=== PATIENT | female | born 1950 | race Hispanic/Latino ===

== ENCOUNTER 2021-04-05 18:24 | Inpatient (IN) | payer OTHER ==
[2021-04-05 18:46] LABS: Absolute Lymphocytes (CBC) 0.9 K/uL (0.7-4.9); Basophils % 0.7 % (0-1.3); Hematocrit 33.2 % (36.0-45.0); Lymphocytes % 9.1 % (15.3-44.8); MPV 8.8 fL (7.6-11.3); RBC Red Blood Cell Count 3.52 M/uL (3.86-4.86)
[2021-04-05 18:50] LABS: Protime INR 1.45
[2021-04-05] MEDS ORDERED: MORPHINE 4 MG/ML SYR ONE ×2 (18:58→20:48)
[2021-04-05] MEDS ORDERED: ONDANSETRON 4 MG/2 ML VIAL ONE (18:59)
[2021-04-05 19:03] LABS: ALT/SGPT 38 U/L (12-78); AST/SGOT 31 U/L (15-37); Albumin 3.7 g/dL (3.4-5.0); Alkaline Phosphatase 169 U/L (45-117); BUN Blood Urea Nitrogen 22 mg/dL (7-18); Bicarbonate 27 mmol/L (21-32); Bilirubin Direct 0.5 mg/dL (0-0.2); Bilirubin Total 1.2 mg/dL (0.2-1.0); Glucose Level 116 mg/dL (74-106); Lipase 28 U/L (73-393); Magnesium 1.6 mg/dL (1.8-2.4); NT PRO-BNP 3810 pg/mL (<125); Potassium 4.1 mmol/L (3.5-5.1); Protein, Total 7.1 g/dL (6.4-8.2); Sodium Level 143 mmol/L (136-145); Troponin (Emerg Dept Use Only) < 0.02 ng/mL (0.0-0.045)
--- NOTE | 2021-04-05 19:12 | RAD REPORT ---
EXAM DESCRIPTION: Chris Single View04/05/2021 6:49 pm CLINICAL HISTORY: Chest pain COMPARISON: None FINDINGS: The lungs appear clear of acute infiltrate. The heart is mildly enlarged. Pacemaker leads are in place. Postsurgical changes involve the chest IMPRESSION: No acute abnormalities displayed
[2021-04-05] MEDS ORDERED: PIPER/TAZO/NS 3.375gm 3.375 GM/100 ML BAG ONE ×2 (19:37→19:41)
--- NOTE | 2021-04-05 19:44 | RAD REPORT ---
EXAM DESCRIPTION: US - Abdomen Exam Limited - 04/05/2021 7:19 pm CLINICAL HISTORY: Abdominal pain. COMPARISON: None. FINDINGS: Several small echogenic structures within the gallbladder. Posterior shadowing was not maude dereck visualized. Gallbladder wall is thickened measuring 6 millimeters. The common bile measures 8 millimeters. Small amount of pericholecystic fluid is present. IMPRESSION: Thickened gallbladder wall may indicate cholecystitis Small echogenic structures within the gallbladder probably stones which did not shadow secondary to a combination of their small size and technical factors. Mild dilatation of common bile duct
--- NOTE | 2021-04-05 20:02 | EDPHYS ---
Physician Documentation [facility] Name: Bel Vallejo Age: 70 yrs Sex: Female : 1950 Arrival Date: 04/05/2021 Time: 18:25 Bed 4 Private MD: ED Physician Gurmeet Carrillo HPI: 04/05 19:39 This 70 yrs old Female presents to ER via Wheelchair with complaints of jr8 Abdominal pain. 19:39 The patient presents with abdominal pain in the epigastric area, in the right upper jr8 quadrant. Onset: The symptoms/episode began/occurred acutely, today. The symptoms radiate to right back. Associated signs and symptoms: Pertinent positives: nausea and vomiting. The symptoms are described as stabbing. Modifying factors: The symptoms are alleviated by nothing, the symptoms are aggravated by nothing. Severity of pain: At its worst the pain was moderate in the emergency department the pain is unchanged. The patient has not experienced similar symptoms in the past. The patient has not recently seen a physician. Family stated that patient started with indigestion and nausea this AM. Stated that about an hour prior to arrival started to have pain to upper right abdomen that is now acutely worse . Historical: - Allergies: 18:48 No Known Allergies; ld1 - PMHx: 18:41 cabg; PPM; tr6 18:48 Pacemaker; Diabetes - IDDM; Hyperlipidemia; ld1 - PSHx: 18:48 Heart Surgery; ld1 - Immunization history:: Adult Immunizations up to date. - Social history:: Smoking status: unknown. ROS: 19:39 Eyes: Negative for injury, pain, redness, and discharge, ENT: Negative for injury, jr8 pain, and discharge, Neck: Negative for injury, pain, and swelling, Cardiovascular: Negative for chest pain, palpitations, and edema, Respiratory: Negative for shortness of breath, cough, wheezing, and pleuritic chest pain, Back: Negative for injury and pain, MS/Extremity: Negative for injury and deformity, Skin: Negative for injury, rash, and discoloration, Neuro: Negative for headache, weakness, numbness, tingling, and seizure. 19:39 Abdomen/GI: Positive for abdominal pain, nausea and vomiting, Negative for diarrhea. Exam: 19:39 ENT: Nares patent. No nasal discharge, no septal abnormalities noted. Tympanic jr8 membranes are normal and external auditory canals are clear. Oropharynx with no redness, swelling, or masses, exudates, or evidence of obstruction, uvula midline. Mucous membranes moist. Neck: Trachea midline, no thyromegaly or masses palpated, and no cervical lymphadenopathy. Supple, full range of motion without nuchal rigidity, or vertebral point tenderness. No Meningismus. 19:39 Cardiovascular: Regular rate and rhythm with a normal S1 and S2. No gallops, murmurs, or rubs. Normal PMI, no JVD. No pulse deficits. Respiratory: Lungs have equal breath sounds bilaterally, clear to auscultation and percussion. No rales, rhonchi or wheezes noted. No increased work of breathing, no retractions or nasal flaring. Back: No spinal tenderness. No costovertebral tenderness. Full range of motion. Skin: Warm, dry with normal turgor. Normal color with no rashes, no lesions, and no evidence of cellulitis. MS/ Extremity: Pulses equal, no cyanosis. Neurovascular intact. Full, normal range of motion. Neuro: Awake and alert, GCS 15, oriented to person, place, time, and situation. Cranial nerves II-XII grossly intact. Motor strength 5/5 in all extremities. Sensory grossly intact. 19:39 Constitutional: The patient appears alert, awake, obviously ill, in obvious pain. 19:39 Abdomen/GI: Inspection: obese Bowel sounds: active, all quadrants, Palpation: soft, in all quadrants, moderate abdominal tenderness, in the epigastric area and right upper quadrant, mass, is not appreciated, rebound tenderness, is not appreciated, voluntary guarding, is not appreciated, involuntary guarding, is not appreciated, no appreciated organomegaly, Indicators: Walker's sign is positive. Vital Signs: 18:48 BP 146 / 99; Pulse 88; Resp 18; Temp 98.9(O); Pulse Ox 99% on R/A; Pain 9/10; ld1 20:00 BP 146 / 89; Pulse 80; Resp 16; Pulse Ox 98% ; rr5 21:06 BP 141 / 79; Pulse 87; Resp 16; Pulse Ox 98% ; ak2 22:23 BP 121 / 75; Pulse 84; Resp 16; Pulse Ox 99% ; rr5 MDM: 18:36 Patient medically screened. jr8 20:00 Data reviewed: vital signs, nurses notes, lab test result(s), EKG, radiologic studies, jr8 plain films, ultrasound. Data interpreted: Pulse oximetry: on room air is 99 %. Interpretation: normal. Counseling: I had a detailed discussion with the patient and/or guardian regarding: the historical points, exam findings, and any diagnostic results supporting the discharge/admit diagnosis, lab results, radiology results, the need for further work-up and treatment in the hospital. Physician consultation: James Martinez MD was called at 20:00, regarding consult, and will see patient in inpatient room. 04/05 18:30 Order name: Basic Metabolic Panel; Complete Time: 19:12 kdr 04/05 18:30 Order name: CBC with Diff; Complete Time: 19:12 kdr 04/05 18:30 Order name: LFT's; Complete Time: 19:12 kdr 04/05 18:30 Order name: Magnesium; Complete Time: 19:12 kdr 04/05 18:30 Order name: NT PRO-BNP; Complete Time: 19:12 kdr 04/05 18:30 Order name: PT-INR; Complete Time: 19:12 kdr 04/05 18:30 Order name: Troponin (emerg Dept Use Only); Complete Time: 19:12 kdr 04/05 18:30 Order name: XRAY Chest (1 view); Complete Time: 19:27 kdr 04/05 18:32 Order name: Lipase bp 04/05 18:47 Order name: Lipase; Complete Time: 19:12 EDMS 04/05 20:30 Order name: CORONAVIRUS EDHI 04/05 21:22 Order name: SARS-COV-2 RT PCR EDHI 04/05 18:30 Order name: EKG; Complete Time: 18:31 kdr 04/05 18:30 Order name: Cardiac monitoring; Complete Time: 18:42 kdr 04/05 18:30 Order name: EKG - Nurse/Tech; Complete Time: 18:42 kdr 04/05 18:30 Order name: IV Saline Lock; Complete Time: 18:42 kdr 04/05 18:30 Order name: Labs collected and sent; Complete Time: 18:42 kdr 04/05 18:30 Order name: O2 Per Protocol; Complete Time: 18:42 kdr 04/05 18:30 Order name: O2 Sat Monitoring; Complete Time: 18:42 kdr 04/05 18:44 Order name: US Abdomen Limited; Complete Time: 19:49 jr8 04/05 21:37 Order name: CONS Physician Consult EDMS Administered Medications: 18:43 Drug: morphine 4 mg Route: IVP; Site: left antecubital; ld1 19:40 Follow up: Response: No adverse reaction; RASS: Alert and Calm (0) rr5 18:44 Drug: Zofran (Ondansetron) 4 mg Route: IVP; Site: left antecubital; ld1 19:40 Follow up: Response: No adverse reaction rr5 19:40 Drug: Zosyn (piperacillin-tazobactam) 3.375 grams Route: IVPB; Infused Over: 60 mins; ak2 Site: left antecubital; 20:40 Follow up: Response: No adverse reaction; IV Status: Completed infusion; IV Intake: rr5 100ml 19:40 Drug: Magnesium Sulfate 2 grams Route: IVPB; Infused Over: 2 hrs; Site: right ak2 antecubital; 21:40 Follow up: Response: No adverse reaction; IV Status: Completed infusion; IV Intake: rr5 100ml 20:32 Drug: morphine 4 mg Route: IVP; Site: left antecubital; ak2 21:30 Follow up: Response: No adverse reaction rr5 Disposition: 04/06 08:05 Co-signature as Attending Physician, Gurmeet Carrillo MD I agree with the assessment and kdr plan of care. Disposition: 04/05/21 20:01 Hospitalization ordered by Martinez Adan for Inpatient Admission. Preliminary diagnosis is Acute cholecystitis. - Bed requested for Telemetry/MedSurg (Inpatient). - Status is Inpatient Admission. rr5 - Condition is Stable. - Problem is new. - Symptoms have improved. Signatures: Dispatcher [employer] EDMS Chasity Hyatt RN RN mw Rittger, Kevin, MD MD [facility] Michael Schuster PA PA jr8 Johan Nelson RN RN rr5 Hawa Ramos RN RN ld1 Suha Robison RN RN tr6 Ned Borges ak2 Corrections: (The following items were deleted from the chart) 04/05 18:47 18:33 Lipase ordered. EDMS EDMS 20:28 20:10 CORONAVIRUS+MR.LAB.BRZ ordered. EDMS EDMS 22:03 20:01 Hospitalization Ordered by Martinez Adan for Inpatient Admission. Preliminary mw diagnosis is Acute cholecystitis. Bed requested for Telemetry/MedSurg (Inpatient). Status is Inpatient Admission. Condition is Stable. Problem is new. Symptoms have improved. jr8 22:26 22:03 04/05/2021 20:01 Hospitalization Ordered by Martinez Adan for Inpatient rr5 Admission. Preliminary diagnosis is Acute cholecystitis. Bed requested for Telemetry/MedSurg (Inpatient). Status is Inpatient Admission. Condition is Stable. Problem is new. Symptoms have improved. mw
--- NOTE | 2021-04-05 20:02 | ER ---
Nurse's Notes [facility] Name: Bel Vallejo Age: 70 yrs Sex: Female : 1950 Arrival Date: 04/05/2021 Time: 18:25 Bed 4 Private MD: Diagnosis: Acute cholecystitis Presentation: 04/05 18:28 Acuity: BENITA 2 ss 18:37 Chief complaint: Patient states: c/o RUQ/ CP beginning at 1805 while pt was resting. pt tr6 visibly in pain and tender to touch. pts daughter reports that pt had CABG in 2005 and PPM to left chest 2013. pt arrived via flight to visit daughter from [place]. Chief complaint:. Coronavirus screen: At this time, unable to obtain information related to travel outside the [place] Ebola Screen: Patient negative for fever greater than or equal to 101.5 degrees Fahrenheit, and additional compatible Ebola Virus Disease symptoms Patient denies exposure to infectious person. Patient denies travel to an Ebola-affected area in the 21 days before illness onset. Initial Sepsis Screen: Does the patient meet any 2 criteria? No. Patient's initial sepsis screen is negative. Does the patient have a suspected source of infection? No. Patient's initial sepsis screen is negative. Risk Assessment: Do you want to hurt yourself or someone else? Patient reports no desire to harm self or others. Onset of symptoms was April 05, 2021. 18:37 Acuity: BENITA 2 tr6 18:37 Method Of Arrival: Wheelchair tr6 Historical: - Allergies: 18:48 No Known Allergies; ld1 - PMHx: 18:41 cabg; PPM; tr6 18:48 Pacemaker; Diabetes - IDDM; Hyperlipidemia; ld1 - PSHx: 18:48 Heart Surgery; ld1 - Immunization history:: Adult Immunizations up to date. - Social history:: Smoking status: unknown. Screenin:48 Abuse screen: Denies threats or abuse. Denies injuries from another. Nutritional ld1 screening: No deficits noted. Tuberculosis screening: No symptoms or risk factors identified. Fall Risk IV access (20 points). Assessment: 18:44 General: Appears in no apparent distress. uncomfortable, Behavior is calm, cooperative, ld1 appropriate for age. Pain: Complains of pain in right upper quadrant and right lower quadrant Pain radiates to back Pain currently is 9 out of 10 on a pain scale. Quality of pain is described as stabbing, throbbing, Pain began 2 hours ago. Is continuous. Neuro: Level of Consciousness is awake, alert, obeys commands, Oriented to person, place, time, situation, Appropriate for age. Cardiovascular: Capillary refill < 3 seconds Patient's skin is warm and dry. Rhythm is atrial pacer Chest pain began 2 hours prior to arrival. Cardiovascular: Reports chest pain, nausea, vomiting. Respiratory: Airway is patent Respiratory effort is even, unlabored, Respiratory pattern is regular, symmetrical. GI: Abdomen is round non-distended, Reports lower abdominal pain, upper abdominal pain, nausea, vomiting. : No signs and/or symptoms were reported regarding the genitourinary system. EENT: No signs and/or symptoms were reported regarding the EENT system. Derm: No signs and/or symptoms reported regarding the dermatologic system. Musculoskeletal: No signs and/or symptoms reported regarding the musculoskeletal system. 19:40 Reassessment: Patient appears in no apparent distress at this time. Patient is alert, rr5 oriented x 3, equal unlabored respirations, skin warm/dry/pink. complaints of pain provider aware with order made and carried out. 21:00 Reassessment: Patient appears in no apparent distress at this time. Patient is alert, rr5 oriented x 3, equal unlabored respirations, skin warm/dry/pink. hospitalist at bedside Patient states symptoms have improved. Vital Signs: 18:48 BP 146 / 99; Pulse 88; Resp 18; Temp 98.9(O); Pulse Ox 99% on R/A; Pain 9/10; ld1 20:00 BP 146 / 89; Pulse 80; Resp 16; Pulse Ox 98% ; rr5 21:06 BP 141 / 79; Pulse 87; Resp 16; Pulse Ox 98% ; ak2 22:23 BP 121 / 75; Pulse 84; Resp 16; Pulse Ox 99% ; rr5 ED Course: 18:25 Patient arrived in ED. mr 18:28 Triage completed. ss 18:30 Gurmeet Carrillo MD is Attending Physician. kdr 18:30 Garrett Aguiar, ALLYN is Primary Nurse. bp 18:36 Michael Schuster PA is PHCP. jr8 18:42 Appears restless. tr6 18:42 Inserted saline lock: 18 gauge in left antecubital area, using aseptic technique. Blood tr6 collected. 18:48 No provider procedures requiring assistance completed. Patient maintains SpO2 ld1 saturation greater than 95% on room air. 18:48 Patient has correct armband on for positive identification. Placed in gown. Bed in low ld1 position. Call light in reach. Side rails up X2. library monitor on. Pulse ox on. NIBP on. Door closed. Noise minimized. Warm blanket given. 18:49 XRAY Chest (1 view) In Process Unspecified. EDMS 19:19 US Abdomen Limited In Process Unspecified. EDMS 19:27 Primary Nurse role handed off by Garrett Aguiar, ALLYN eb 19:30 Arm band placed on right wrist. rr5 20:01 Martinez Adan is Hospitalizing Provider. jr8 20:08 Johan Nelson, ALLYN is Primary Nurse. rr5 20:32 COVID swab sent to lab. rr5 22:14 Patient admitted, IV remains in place. intact, No redness/swelling at site. rr5 Administered Medications: 18:43 Drug: morphine 4 mg Route: IVP; Site: left antecubital; ld1 19:40 Follow up: Response: No adverse reaction; RASS: Alert and Calm (0) rr5 18:44 Drug: Zofran (Ondansetron) 4 mg Route: IVP; Site: left antecubital; ld1 19:40 Follow up: Response: No adverse reaction rr5 19:40 Drug: Zosyn (piperacillin-tazobactam) 3.375 grams Route: IVPB; Infused Over: 60 mins; ak2 Site: left antecubital; 20:40 Follow up: Response: No adverse reaction; IV Status: Completed infusion; IV Intake: rr5 100ml 19:40 Drug: Magnesium Sulfate 2 grams Route: IVPB; Infused Over: 2 hrs; Site: right ak2 antecubital; 21:40 Follow up: Response: No adverse reaction; IV Status: Completed infusion; IV Intake: rr5 100ml 20:32 Drug: morphine 4 mg Route: IVP; Site: left antecubital; ak2 21:30 Follow up: Response: No adverse reaction rr5 Intake: 20:40 IV: 100ml; Total: 100ml. rr5 21:40 IV: 100ml; Total: 200ml. rr5 Outcome: 20:01 Decision to Hospitalize by Provider. jr8 22:22 Admitted to Med/surg accompanied by tech, room 217, with chart, Report called to rr5 raza 22:22 Condition: stable 22:22 Instructed on the need for admit. 22:26 Patient left the ED. rr5 Signatures: Dispatcher [employer] EDMS Gurmeet Carrillo MD MD [facility] Adrián, Claudia mr Chhaya Zhao, RN RN Michael Schuster PA PA jr8 Garrett Aguiar, RN RN Shira Michael Raymond RN RN rr5 Hawa Ramos RN RN ld1 Suha Robison RN RN tr6 Ned Borges Corrections: (The following items were deleted from the chart) 18:37 18:28 Acuity: BENITA 1 ss 18:40 18:37 Onset of symptoms was April 04, 2021 tr6 tr6
[2021-04-05] MEDS ORDERED: Magnesium Sulfate 2gm IVPB 2 G/50 ML BAG IV ONE (20:06)
[2021-04-05] MEDS: NA CHLORIDE 0.9% 1,000 ML IV SCH (23:00)
[2021-04-05] MEDS ORDERED: ACETAMINOPHEN 500 MG TAB PO PRN (23:08)
[2021-04-06] MEDS ORDERED: ONDANSETRON 4 MG/2 ML VIAL IV PRN (01:00)
[2021-04-06] MEDS: PIPER/TAZO/NS 3.375gm 3.375 GM/100 ML BAG IVPB SCH ×3 (03:06→17:00)
[2021-04-06] MEDS ORDERED: PIPER/TAZO/NS 3.375gm 3.375 GM/100 ML BAG ONE (03:06)
--- NOTE | 2021-04-06 03:57 | P.HP ---
Certification for Inpatient With expected LOS: >2 Midnights Patient will require the following post-hospital care: None Practitioner: I am a practitioner with admitting privileges, knowledge of patient current condition, hospital course, and medical plan of care. Services: Services provided to patient in accordance with Admission requirements found in Title 42 Section 412.3 of the Code of Federal Regulations Patient History Date of Service: 04/06/21 Primary Care Provider: Dr. Irma Bell Reason for admission: cholecystitis History of Present Illness: Ms. Vallejo is a 70 y/o F w/ HTN, HLD, T2DM, hx of CABG and pacemaker, on eliquis, who presents today w/ RUQ pain radiating to lower back. She states the pain started a few hours after eating lunch and felt like indigestion. She states the pain was continuous and 10/10. Reports this has never occurred before. C/o nausea, vomiting, chills. Denies any fever, cough, changes in bowel movements. BUN 22, Alk phos 169, BNP 3810. Abdominal u/s shows: Thickened gallbladder wall may indicate cholecystitis. Small echogenic structures within the gallbladder probably stones which did not shadow secondary to a combination of their small size and technical factors. Mild dilatation of common bile duct Will admit and plan for surgery tomorrow. Pt last took eliquis this afternoon. Pain well controlled in ED. Allergies No Known Allergies Allergy (Verified 04/05/21 20:29) - Past Medical/Surgical History Has patient received pneumonia vaccine in the past: Yes Diabetic: Yes -: Hyperlipidemia -: Hypertention -: Diabetes Mellitus Type 2 -: afib -: gout -: OA -: central tremors -: Hysterectomy -: -: CABG -: Pacemaker Psychosocial/ Personal History: lives in [place] with son. In town visiting grand-daughter - Social History Smoking Status: Never smoker Alcohol use: No CD- Drugs: No Caffeine use: No Place of Residence: Home Review of Systems 10-point ROS is otherwise unremarkable General: Chills Gastrointestinal: Nausea, Vomiting, Abdominal Pain, As per HPI Physical Examination - Vital Signs Temperature: 98.6 F Blood Pressure: 126/74 Pulse: 88 Respirations: 18 Pulse Ox (%): 96 - Physical Exam General: Alert, In no apparent distress, Oriented x3, Cooperative HEENT: Atraumatic, Normocephalic, PERRLA, EOMI Neck: Supple Respiratory: Clear to auscultation bilaterally, Normal air movement Cardiovascular: No edema, Regular rate/rhythm, Normal S1 S2 Capillary refill: <2 Seconds Gastrointestinal: Normal bowel sounds, Soft and benign, Non-distended, Tenderness (RUQ TTP), Guarding (RUQ) Musculoskeletal: No clubbing, No swelling Integumentary: No rashes Neurological: Normal speech, Normal tone, Normal affect Lymphatics: No axilla or inguinal lymphadenopathy - Studies Laboratory Data (last 24 hrs) 04/05/21 18:33: Lipase Cancelled 04/05/21 18:33: PT 16.7 H, INR 1.45 04/05/21 18:33: WBC 10.30, Hgb 11.1 L, Hct 33.2 L, Plt Count 164 04/05/21 18:33: Sodium 143, Potassium 4.1, BUN 22 H, Creatinine 1.11, Glucose 116 H, Magnesium 1.6 L, Total Bilirubin 1.2 H, AST 31, ALT 38, Alkaline Phosphatase 169 H, Lipase 28 L Assessment and Plan - Plan cardiac clearance, consult cardiology telemetry NPO continue zosyn, IVF morphine for pain control surgery consulted. will plan for surgery tomorrow morning. consult GI hold all home meds and plan to restart after surgery Discharge Plan: Home Plan to discharge in: 48 Hours - Advance Directives Does patient have a Living Will: No Does patient have a Durable POA for Healthcare: No Time Spent Managing Pts Care (In Minutes): 70
[2021-04-06 04:42] LABS: Urine Appearance CLEAR (Clear); Urine Bilirubin NEGATIVE (Negative); Urine Blood NEGATIVE (Negative); Urine Color YELLOW (Yellow); Urine Glucose NEGATIVE (Negative); Urine Protein NEGATIVE (Negative); Urine Specific Gravity 1.015 (1.005-1.030)
[2021-04-06 04:49] LABS: Urine Microscopic Reflex NO UMIC
[2021-04-06 05:49] LABS: Absolute Lymphocytes (CBC) 1.2 K/uL (0.7-4.9); Basophils % 0.6 % (0-1.3); Hematocrit 28.3 % (36.0-45.0); MPV 9.2 fL (7.6-11.3); RBC Red Blood Cell Count 2.98 M/uL (3.86-4.86)
[2021-04-06 06:20] LABS: Albumin 2.9 g/dL (3.4-5.0); Magnesium 1.9 mg/dL (1.8-2.4); Potassium 4.4 mmol/L (3.5-5.1); Protein, Total 5.9 g/dL (6.4-8.2); Thyroid Stimulating Hormone 0.44 uIU/mL (0.360-3.740)
[2021-04-06] MEDS ORDERED: NA CHLORIDE 0.9% 1,000 ML ONE ×2 (14:11→17:12)
--- NOTE | 2021-04-06 14:35 | P.PN ---
Subjective Date of Service: 04/06/21 Primary Care Provider: Dr. Irma Bell Chief Complaint: cholecystitis Patient denies any complain at this time. She states her abdominal pain has resolved. She is NPO. Physical Examination - Vital Signs Temperature: 97.3 F Blood Pressure: 142/75 Pulse: 84 Respirations: 16 Pulse Ox (%): 96 - Physical Exam General: Alert, In no apparent distress, Oriented x3 HEENT: Mucous membr. moist/pink, Sclerae nonicteric Neck: Supple, JVD not distended Respiratory: Clear to auscultation bilaterally, Normal air movement Cardiovascular: No edema, Regular rate/rhythm, Normal S1 S2 Gastrointestinal: Normal bowel sounds, Soft and benign, Non-distended, No tenderness Musculoskeletal: No swelling, No tenderness Integumentary: No rashes, No erythema Neurological: Normal speech, Normal strength at 5/5 x4 extr, Cranial nerves 3-12 intact - Studies Laboratory Data (last 24 hrs) 04/05/21 18:33: Lipase Cancelled 04/05/21 18:33: PT 16.7 H, INR 1.45 04/05/21 18:33: WBC 10.30, Hgb 11.1 L, Hct 33.2 L, Plt Count 164 04/05/21 18:33: Sodium 143, Potassium 4.1, BUN 22 H, Creatinine 1.11, Glucose 116 H, Magnesium 1.6 L, Total Bilirubin 1.2 H, AST 31, ALT 38, Alkaline Phosphatase 169 H, Lipase 28 L Assessment And Plan - Current Problems (Diagnosis) (1) Acute cholecystitis Current Visit: Yes Status: Acute (2) Cholelithiasis Current Visit: Yes Status: Acute (3) Anemia Current Visit: Yes Status: Acute (4) Chronic atrial fibrillation Current Visit: Yes Status: Acute (5) Chronic anticoagulation Current Visit: Yes Status: Acute - Plan Patient with cholelithiasis and imaging findings suggestive of cholecystitis. She is anticoagulated with Eliquis. Hold Eliquis. General surgery-Dr. Martinez consulted. Patient kept NPO. May need lap cholecystectomy and intra op cholangiogram. GI consult pending cholecystectomy. Resume antihypertensives and Coreg.
--- NOTE | 2021-04-06 15:32 | P.CNS ---
Date of Consult: 04/06/21 PC: This 70-year-old female presents emergency room with severe right upper quadrant abdominal pain for diagnosis and treatment. HPC: This patient, who was out of town visiting her granddaughter squeezing in a concert tomorrow presents to the ER with severe right upper quadrant abdominal pain. She describes the pain is severe, radiating into her back. Earliest stronger is labor pains. She denies having previous episodes of this but has not felt well over the last few weeks. PMH: History is atrial fibrillation, PSHx: Previous C-sections, no abdominal surgery, has a pacemaker SOC: No known allergies, medication list has been reviewed, she is on blood thinners SYS REVIEW: No cough, wheeze, does have very mild exertional dyspnea. States her appetite has been okay med has not really felt well for the last few weeks. Denies any urinary complaints. Says she has had this pain a couple times before but did not think it was significant. O/E awake alert vital signs are stable HEENT: Nonicteric Chest: Chest movement equal bilaterally ABD: Soft with mild right upper quadrant tenderness LOCO: Intact DATA: Ultrasound shows gallstones, possible mildly dilated common bile duct, CT scan shows griffin cholecystic fluid. IMPRESSION: Acute on chronic cholecystitis with cholelithiasis, possible choledocholithiasis PLAN: I will take her to the operating room for laparoscopic possible open cholecystectomy with cholangiogram. The risks of this procedure have been discussed. The possibility of bleeding, infection, injury to bile ducts blood vessels intestines has been described. The possible need for further surgeries and procedures was discussed. She understands and wants us to proceed.
--- NOTE | 2021-04-06 15:35 | CON ---
Date of Consultation: 04/06/2021 Reason For Consultation: Cardiac preop evaluation before gallbladder surgery. History Of Present Illness: This is a 70-year-old female who presented to the hospital with signific ant abdominal pain and history of hypertension, dyslipidemia, coronary artery disease status post car diac bypass surgery in 2006. The patient presented with right upper quadrant pain, nausea, vomiting, fever and chills and is concerned about significant case of acute cholecystitis and before _ to surgery, I was asked to evaluate the patient to risk stratify cardiac status for general anesthe silverio. This patient is very active, lives in a place where she has to climb 17 steps up and down all d ay and she does not have any limiting symptoms. No chest pain. She gets short of breath, but not to limit her activities. The patient follows up with card folder on a regular basis and had a stress test within the past 2-3 years and she passed it as per her report. No active complaints at this poi nt of chest pain or shortness of breath at rest. Past Medical History: As outlined above in the HPI. Medications: Refer to reconciliation sheet for detailed list. Allergies: NO KNOWN DRUG ALLERGIES. Family History: No premature coronary artery disease or cancer. Social History: She does not smoke or drink. Does not use any drugs. Review of Systems: All systems reviewed and they were negative except as mentioned in the HPI. Physical Examination: Vital Signs: Reviewed. Head and Neck: Pupils are equal, reactive to light. Intact eye movements. No JVD. No cervical lym phadenopathy. Neck: Supple. Thyroid is not enlarged. Lungs: Clear to auscultation bilaterally. No rhonchi, rales, or crackles. No accessory muscle use. Heart: Regular rate and rhythm. No extra sounds. Abdomen: Soft. Bowel sounds positive. Extremities: No edema, clubbing, cyanosis. Neurologic: Alert, awake, oriented x3. No acute focal deficits appreciated. Lymph Nodes: No cervical lymphadenopathy. Investigations: Troponin less than 0.02. BUN is 20, creatinine 1.04. White blood cell count is 6.3 , hemoglobin 9.4. Assessment And Recommendation: Cardiac preop assessment: This patient has multiple risk factors inc luding established coronary artery disease. However, she is physically active, can climb more than 1 7 steps multiple times during the day without any chest pain. This good exercise capacity is assurin g. However, given her age and risk factors that will put her at moderate cardiac risk for noncardiac surgery and I discussed her case with the primary surgeon and it seems there is a concern of signifi cant acute cholecystitis and possibly gangrene. Given the urgency of the surgery, at this point, I r ecommend no further cardiac workup and to proceed with the surgery and we will monitor the patient cl osely from a cardiac standpoint. Again; she is at moderate cardiac risk for noncardiac surgery and no further cardiac workup is recomm ended due to the urgency nature of the surgery. /MODL Voice ID: [id number] Report ID: [id number]
[2021-04-06] MEDS ORDERED: propofoL 200 MG/20 ML VIAL IV ONE (15:49)
[2021-04-06] MEDS ORDERED: FENTANYL CITR 100 MCG/2 ML ONE (15:50)
[2021-04-06] MEDS ORDERED: MIDAZOLAM HCL 2 MG/2 ML INJ ONE (15:50)
[2021-04-06] MEDS ORDERED: GLYCOPYRROLATE 0.2 MG/ML SYR ONE ×2 (15:50)
[2021-04-06] MEDS ORDERED: LIDOCAINE 1% MPF 5 ML VIAL ONE (15:50)
[2021-04-06] MEDS ORDERED: NEOSTIGMINE 1 MG/ML -5 ML ONE (15:51)
[2021-04-06] MEDS ORDERED: KETOROLAC 30 MG/ML INJ ONE (15:51)
[2021-04-06] MEDS ORDERED: ROCURONIUM 50 MG/5 ML VIAL IV ONE (15:52)
[2021-04-06] MEDS ORDERED: INSULIN -REGULAR HUMAN 50 UNIT/0.5 ML ML ONE (16:02)
[2021-04-06] MEDS: NA CHLORIDE 0.9% 1,000 ML IV SCH ×4 (16:52→18:12)
--- NOTE | 2021-04-06 17:50 | P.OP ---
Preoperative diagnosis: Acute cholecystitis with cholelithiasis possible choledocholithiasis Postoperative diagnosis: Acute cholecystitis with cholelithiasis Primary procedure: Laparoscopic cholecystectomy Secondary procedure: Cholangiogram Other procedure(s): Exploration of common bile duct Anesthesia: General Estimated blood loss: Less than 20 cc Specimen: Gallbladder and contents Operative Technique: The patient brought the operating room placed supine on the table. After the induction of adequate general endotracheal anesthesia, the area of the abdomen was prepped with a DuraPrep solution, she is draped in usual aseptic manner. A subumbilical incision was made. This brought down through the skin and subcutaneous tissue. The Visiport was used to enter the peritoneal cavity and created pneumoperitoneum to approximately 12 mm of mercury. Under direct vision a 5 mm trocar was placed in the upper midline, and 2 other 5 mm trocars on the right lateral side of the abdominal wall. The patient was now placed in reverse Trendelenburg. The patient was then rolled to the left. We could visualize right upper quadrant. We noted a markedly distended and edematous gallbladder. The contents of the gallbladder were aspirated using an aspirating needle. We were now able to place a grasper on the fundus of the gallbladder. Another grasper was placed down by Willa's pouch. There was noted be a considerable amount of edema around the area over the Willa's pouch and cystic duct junction. This area was clear to obtain the critical view. This having being done a clip was now placed between the gallbladder and the cystic duct. An opening was made into the cystic duct through which we obtained a cholangiogram. The cholangiogram showed a filling defect. We were able to pass the catheter down through this but we could is not dislodge this filling defect. The catheter did not pass easily when the balloon was deflated into the duodenum. At this point is to grow basket was taken 2.5 Slovak then passed down through the cystic duct. Unfortunately were not able to make the bend at the junction between the cystic duct and the common bile duct that there were valves in that area. We did not persistent this nor did we continue to try to dilate the cystic duct. At this point point weak tissues me cholangiocatheter in the balloon to explore the common duct. The catheter was now passed all the way down to the distal portion of the cystic duct. Its position was verified by gently inflating the balloon. Gentle traction was was now applied to the catheter to pull it back. We were able to pull it passes what appeared to be obstruction. As we got up to the junction of the cystic duct continuing to apply traction the balloon popped out of the cystic duct. Unfortunately did not see whether there was any contents as a kind of gave away quickly. A completion cholangiogram after that showed no filling defects in the common bile duct. The extrahepatic biliary tree appeared to fill normally. At this point the catheter was removed. Clips were placed on the distal portion of the cystic duct which was now fully transected. The cystic artery was identified clipped and divided in the usual manner. The gallbladder was dissected free from the liver bed, placed into an Endo-Catch, and brought out through the umbilical trocar site. At this point we inspected the right upper quadrant. It appeared to be dry. Attention was turned back towards the emboli kiss in this air was approximated with 3 interrupted sutures of PDS. A good closure having been achieved, we once again looked in the right upper quadrant. It appeared to have some increased oozing from underneath the edge of the liver. Attention was now turned back up towards the liver itself. Once again the patient was placed in reverse Trendelenburg and rolled to the left. The liver bed was inspected. Some small vessels were seen but there was no actual pumping up arteries. The patient is on Eliquis. It was also necessary to place an additional 5 mm trocar in the upper portion of the right side of the abdomen to allowed us to gently manipulate the liver edge without causing any perforating injury to the liver itself. This having mean done the patient was once again taken out of reverse Trendelenburg and flatten on the OR table. The pneumoperitoneum was now collapsed, the trocars removed, and truman applied to the skin. At the end of the procedure she was in a stable condition when sent to the recovery room. Needle sponge instrument count were correct. No drains were placed. Transferred to: Recovery Room Condition: Good
[2021-04-06] MEDS ORDERED: MORPHINE 4 MG/ML SYR IV PRN (17:53)
[2021-04-06] MEDS: HYDROMORPHONE HCL 1 MG/ML INJ ONE ×2 (17:53→17:58)
--- NOTE | 2021-04-06 18:48 | RAD REPORT ---
EXAM DESCRIPTION: RAD - Cholangiogram Oper-Xray Or - 04/06/2021 6:41 pm CLINICAL HISTORY: LAP PAPITO WITH IOC WITH DOCTOR AFRAZ ROOM TWO COMPARISON: Abdomen Exam Limited dated 04/05/2021 FINDINGS: Cystic duct injection was performed by operating surgeon. Common bile duct is mildly promi nent in size. Rounded filling defect in the common bile duct may represent a stone or less likely air bubble. Total fluoro time: 1.9 minutes
[2021-04-06] MEDS: carvediloL 25 MG TAB PO SCH (20:32)
[2021-04-06] MEDS: MORPHINE 2 MG/ML SYR IV PRN (20:57)
[2021-04-07] MEDS: PIPER/TAZO/NS 3.375gm 3.375 GM/100 ML BAG IVPB SCH ×4 (02:11→23:53)
[2021-04-07] MEDS: MORPHINE 2 MG/ML SYR IV PRN (02:49)
[2021-04-07 06:18] LABS: Absolute Lymphocytes (CBC) 0.7 K/uL (0.7-4.9); Basophils % 0.5 % (0-1.3); Hematocrit 23.7 % (36.0-45.0); Lymphocytes % 7.8 % (15.3-44.8); MPV 9.3 fL (7.6-11.3); RBC Red Blood Cell Count 2.49 M/uL (3.86-4.86)
[2021-04-07] MEDS: PANTOPRAZOLE 40MG TABLET PO SCH (06:24)
[2021-04-07 06:28] LABS: Albumin 2.7 g/dL (3.4-5.0); Bilirubin Direct 0.3 mg/dL (0-0.2); Potassium 4.5 mmol/L (3.5-5.1); Protein, Total 5.4 g/dL (6.4-8.2)
[2021-04-07 08:05] LABS: Anisocytosis 1+; Blood Morphology Comment NOTED (NOT SEEN); Platelet Estimate DECR; Polychromasia 1+
[2021-04-07] MEDS: MAGNESIUM OXIDE 400 MG TAB PO SCH (08:05)
[2021-04-07] MEDS: allopurinoL 300 MG TAB PO SCH (08:06)
[2021-04-07] MEDS: lisinopriL 10 MG TAB PO SCH (08:06)
[2021-04-07] MEDS: carvediloL 25 MG TAB PO SCH ×2 (08:06→21:00)
--- NOTE | 2021-04-07 11:46 | P.PN ---
Subjective Date of Service: 04/07/21 Primary Care Provider: Dr. Irma Bell Chief Complaint: cholecystitis Status post lap cholecystectomy. Intra op cholangiogram identified rounded mass in the CBD. Patient has no complaint except fatigue. Physical Examination - Vital Signs Temperature: 97.6 F Blood Pressure: 96/54 Pulse: 94 Respirations: 16 Pulse Ox (%): 97 - Physical Exam General: Alert, In no apparent distress, Oriented x3 HEENT: Mucous membr. moist/pink Neck: JVD not distended Respiratory: Clear to auscultation bilaterally, Normal air movement Cardiovascular: No edema, Regular rate/rhythm, Normal S1 S2 Gastrointestinal: Normal bowel sounds, Soft and benign, Non-distended Musculoskeletal: No swelling Integumentary: No rashes Neurological: Normal strength at 5/5 x4 extr Assessment And Plan - Current Problems (Diagnosis) (1) Acute cholecystitis Current Visit: Yes Status: Acute (2) Cholelithiasis Current Visit: Yes Status: Acute (3) Anemia Current Visit: Yes Status: Acute (4) Chronic atrial fibrillation Current Visit: Yes Status: Acute (5) Chronic anticoagulation Current Visit: Yes Status: Acute - Plan Status post lap cholecystectomy. Intra op cholangiogram reporting rounded mass in the CBD. She is anticoagulated with Eliquis. Continue to hold Eliquis. Will order MRCP for Thursday. General surgery-Dr. Martinez input appreciated. GI consult. Feeding resumed. Hold BP meds due to borderline low blood pressure.
[2021-04-07] MEDS ORDERED: NA CHLORIDE 0.9% 250 ML IV ONE (11:55)
[2021-04-07] MEDS: HYDROCODONE/APAP 7.5/325 MG TAB PO PRN ×2 (12:05→21:51)
[2021-04-07] MEDS: NA CHLORIDE 0.9% 1,000 ML IV SCH (12:36)
[2021-04-07] MEDS ORDERED: NA CHLORIDE 0.9% 500 ML IV ONE (15:40)
--- NOTE | 2021-04-07 16:39 | P.PN ---
Date of Service: 04/07/21 S: Patient feels so much better today she states, very thankful for her care. O: Patient was mildly hypertensive this evening. Otherwise awake, interactive, very comfortable. Has been up ambulating, has been to the restroom. Not tachycardic. A: Surgically stable status post laparoscopic cholecystectomy with exploration of common bile duct. P: From a surgical standpoint point, patient appears to be doing very well. The radiology report another concerning possible common bile duct stone versus air bubble was my concern yesterday in the operating room. I felt that our completion films on the cholangiogram demonstrated that the filling defect had resolved. I will discuss this with the radiologist in the morning, prior to the patient's discharge, and will determine if she requires ongoing treatment. Patient from [place], but will be staying with some friends he in the local area postoperatively. She will also follow up with me in my office.
[2021-04-08 04:57] LABS: Basophils % 0.4 % (0-1.3); Lymphocytes % 12.8 % (15.3-44.8); MPV 8.6 fL (7.6-11.3); RBC Red Blood Cell Count 1.96 M/uL (3.86-4.86)
[2021-04-08 05:02] LABS: Hematocrit 18.8 % (36.0-45.0)
[2021-04-08] MEDS ORDERED: DIPHENHYDRAMINE 50 MG/ML VIAL IV PRN (05:08)
[2021-04-08 05:09] LABS: Magnesium 1.8 mg/dL (1.8-2.4); Potassium 4.3 mmol/L (3.5-5.1)
[2021-04-08] MEDS: PANTOPRAZOLE 40MG TABLET PO SCH (05:56)
[2021-04-08] MEDS: MAGNESIUM OXIDE 400 MG TAB PO SCH (08:42)
[2021-04-08] MEDS: carvediloL 25 MG TAB PO SCH ×2 (08:42→21:00)
[2021-04-08] MEDS: lisinopriL 10 MG TAB PO SCH (08:43)
[2021-04-08] MEDS: PIPER/TAZO/NS 3.375gm 3.375 GM/100 ML BAG IVPB SCH ×2 (08:43→16:15)
[2021-04-08] MEDS: allopurinoL 300 MG TAB PO SCH (08:46)
[2021-04-08] MEDS: NA CHLORIDE 0.9% 1,000 ML IV SCH ×2 (10:00→22:21)
[2021-04-08] MEDS ORDERED: NA CHLORIDE 0.9% 250 ML ONE (10:30)
[2021-04-08] MEDS: HYDROCODONE/APAP 7.5/325 MG TAB PO PRN ×2 (11:04→18:31)
[2021-04-08 13:28] LABS: Protime INR 1.15
--- NOTE | 2021-04-08 13:56 | P.PN ---
Subjective Date of Service: 04/08/21 Primary Care Provider: Dr. Irma Bell Chief Complaint: cholecystitis Status post lap cholecystectomy. Intra op cholangiogram identified rounded mass in the CBD. Patient still complaining of fatigue. Hemoglobin drop overnight to 6.4. Patient currently getting 1 unit PRBC. She reports intermittent dark stool. Physical Examination - Vital Signs Temperature: 97.5 F Blood Pressure: 149/67 Pulse: 101 Respirations: 17 Pulse Ox (%): 94 - Physical Exam General: Alert, In no apparent distress, Oriented x3 HEENT: Mucous membr. moist/pink Neck: JVD not distended Respiratory: Clear to auscultation bilaterally, Normal air movement, Crackles/rales Cardiovascular: No edema, Regular rate/rhythm, Normal S1 S2 Gastrointestinal: Normal bowel sounds, Soft and benign, Non-distended, No tenderness Musculoskeletal: No swelling Integumentary: No rashes, No breakdown Neurological: Normal strength at 5/5 x4 extr Assessment And Plan - Current Problems (Diagnosis) (1) Acute cholecystitis Current Visit: Yes Status: Acute (2) Cholelithiasis Current Visit: Yes Status: Acute (3) Anemia Current Visit: Yes Status: Acute (4) Chronic atrial fibrillation Current Visit: Yes Status: Acute (5) Chronic anticoagulation Current Visit: Yes Status: Acute (6) Choledocholithiasis Current Visit: Yes Status: Acute - Plan Status post lap cholecystectomy. Intra op cholangiogram reporting rounded mass in the CBD. She is anticoagulated with Eliquis. Hemoglobin dropped. Eliquis is still on hold. Cannot do MRCP given patient has a pacemaker . General surgery-Dr. Martinez input appreciated. GI consulted. Sent message to Dr. Hameed. Keep NPO overnight. Continue lisinopril and Coreg with holding parameters.
--- NOTE | 2021-04-08 14:34 | RAD REPORT ---
EXAM DESCRIPTION: CT - Abdomen Pelvis Wo Contrast - 04/08/2021 2:02 pm CLINICAL HISTORY: Abdominal pain. post cholecystectomy complications COMPARISON: Abdomen Exam Limited dated 04/05/2021; Cholangiogram Oper-Xray Or dated 04/06/2021 TECHNIQUE: CT imaging of the abdomen and pelvis was performed without contrast. Solid organ, bowel a nd vascular assessment is limited due to lack of IV and oral contrast. All CT scans are performed using dose optimization technique as appropriate and may include automated exposure control or mA/KV adjustment according to patient size. FINDINGS: Linear atelectasis is present in both posterior lung bases. The liver, spleen, pancreas, adrenal glands and kidneys are within normal limits for a limited non-co ntrast examination.Benign cysts are present in both kidneys without hydronephrosis. Cholecystectomy. Several radiodense rounded stones are seen in the common bile duct, the largest theresa uring 6-7 mm. Intra-abdominal right upper quadrant 9 x 4 cm echogenic structure is present along the anterior abdom inal wall compatible with a hematoma. Additional smaller hematoma along the anterior wall is present slightly more inferiorly located measuring 4.0 x 1.6 cm. No bowel obstruction present. No abscess cheryl ntified. Mild aortoiliac atherosclerosis. No fracture or subluxation evident.Moderate right flank soft tissue edema. IMPRESSION: Several stones are present in the common bile duct compatible with choledocholithiasis. Right upper quadrant anterior intra-abdominal hematomas along the abdominal wall noted as detailed. A limited non-contrast examination was performed as detailed.
[2021-04-08 16:05] LABS: Hematocrit 26.6 % (36.0-45.0)
[2021-04-08] MEDS ORDERED: MAGNESIUM CITRATE 300 ML BOT PO SCH (19:00)
[2021-04-08 19:17] LABS: Albumin 2.8 g/dL (3.4-5.0); Bilirubin Direct 0.4 mg/dL (0-0.2); Bilirubin Total 1.2 mg/dL (0.2-1.0); Protein, Total 5.8 g/dL (6.4-8.2)
[2021-04-08 22:36] VITALS: BMI 34.0
[2021-04-09] MEDS: PIPER/TAZO/NS 3.375gm 3.375 GM/100 ML BAG IVPB SCH ×3 (02:03→16:51)
[2021-04-09 05:42] LABS: Basophils % 0.4 % (0-1.3); Lymphocytes % 11.7 % (15.3-44.8); RBC Red Blood Cell Count 2.72 M/uL (3.86-4.86)
[2021-04-09 06:00] LABS: Albumin 2.5 g/dL (3.4-5.0); Bilirubin Total 1.2 mg/dL (0.2-1.0); Potassium 4.5 mmol/L (3.5-5.1); Protein, Total 5.2 g/dL (6.4-8.2)
[2021-04-09] MEDS: NA CHLORIDE 0.9% 1,000 ML IV SCH (06:00)
[2021-04-09] MEDS: PANTOPRAZOLE 40MG TABLET PO SCH (06:00)
--- NOTE | 2021-04-09 08:21 | ECHO ---
HEIGHT: 5 ft 0 in WEIGHT: 174 lb 6.4 oz DATE OF STUDY: 04/08/[address]: baron juarez 2-DIMENSIONAL: YES M.MODE: YES DOPPLER: YES COLOR FLOW: YES TDS: NO PORTABLE: NO DEFINITY: NO BUBBLE STUDY: NO DIAGNOSIS: HYPOTENSION CARDIAC HISTORY: CATHERIZATION: SURGERY: PROSTHETIC VALVE: PACEMAKER: MEASUREMENTS (cm) DIASTOLIC (NORMALS) SYSTOLIC (NORMALS) IVSd 0.9 (0.6-1.2) LA Diam 4.4 (1.9-4.0) LVEF 29% LVIDd 4.4 (3.5-5.7) LVIDs 3.8 (2.0-3.5) %FS 13% LVPWd 1.0 (0.6-1.2) Ao Diam 3.9 (2.0-3.7) 2 DIMENSIONAL ASSESSMENT: RIGHT ATRIUM: NORMAL LEFT ATRIUM: NORMAL RIGHT VENTRICLE: PACEMAKER WIRE LEFT VENTRICLE: DEPRESSED TRICUSPID VALVE: MODERATE TRICUSPID REGURGITATION MITRAL VALVE: MITRAL ANNULAR CALCIFICATION, MODERATE MITRAL REGURGITATION PULMONIC VALVE: NORMAL AORTIC VALVE: CALCIFIED PERICARDIAL EFFUSION: NONE AORTIC ROOT: DILATE AORTA LEFT VENTRICULAR WALL MOTION: SEVERE GLOBAL HYPOKINESIS. DOPPLER/COLOR FLOW: SEE BELOW. COMMENTS: SEVERELY DEPRESSED LEFT VENTRICULAR EJECTION FRACTION 25-30% WITH GLOBAL HYPOKINESIS. MODERATE MITRAL REGURGITATION, MODERATE TRICUSPID REGURGITATION. MODERATE AORTIC STENOSIS. DILATED THORACIC AORTA AT 4.3 CENTIMETERS. PULMONARY HYPERTENSION (SEVERE) WITH RIGHT VENTRICULAR SYSTOLIC PRESSURE GREATER THAN 60mmHg. TECHNOLOGIST: LARRY RABAGO
[2021-04-09] MEDS ORDERED: D50W 25 GM/50 ML SYRINGE IV PRN (08:30)
[2021-04-09] MEDS: allopurinoL 300 MG TAB PO SCH (09:00)
[2021-04-09] MEDS: carvediloL 25 MG TAB PO SCH ×2 (09:00→20:53)
[2021-04-09] MEDS: lisinopriL 10 MG TAB PO SCH (09:00)
[2021-04-09] MEDS: MAGNESIUM OXIDE 400 MG TAB PO SCH (09:00)
[2021-04-09] MEDS: D5 0.45 NS 1,000 ML IV SCH (09:03)
[2021-04-09] MEDS ORDERED: NA CHLORIDE 0.9% 1,000 ML ONE (10:34)
--- NOTE | 2021-04-09 15:03 | P.PN ---
Subjective Date of Service: 04/09/21 Primary Care Provider: Dr. Irma Bell Chief Complaint: cholecystitis Subjective: Improving (nausea and pain improved; scheduled for EGD today, unfortunately leak in EGD room, delaying procedure) Review of Systems 10-point ROS is otherwise unremarkable Physical Examination - Vital Signs Temperature: 98.0 F Blood Pressure: 127/60 Pulse: 78 Respirations: 18 Pulse Ox (%): 96 Assessment & Plan Physician Review Additional Text: Physical Exam General: Alert, In no apparent distress, Oriented x3 HEENT: Mucous membr. moist/pink Respiratory: Clear to auscultation bilaterally, Normal air movement Cardiovascular: No edema, Regular rate/rhythm, Normal S1 S2 Gastrointestinal: Soft and benign, Non-distended, No tenderness Musculoskeletal: No swelling Integumentary: No rashes, No breakdown Neurological: Normal strength at 5/5 x4 extr Problem list Acute cholecystitis now s/p lap stephanie Choledocholithiasis Anemia, acute blood loss. Chronic atrial fibrillation on Eliquis s/p lap stephanie, intra-op cholangiogram reported rounded mass in the CBD seen at times repeat imaging reveals stones in CBD pt scheduled for ERCP today, however issue with room delays the procedure Hgb dropped yesterday, received 1u PRBC, so far stable; has abdominal wall hematomas General surgery following as well continue zosyn, IVF continue to hold eliquis Dispo: anticipate dc home in 24-48hrs, pending ERCP Time Spent Managing Pts Care (In Minutes): 35
[2021-04-09] MEDS ORDERED: D50W 25 GM/50 ML VIAL IV PRN (16:00)
[2021-04-10] MEDS: PIPER/TAZO/NS 3.375gm 3.375 GM/100 ML BAG IVPB SCH ×3 (01:00→17:09)
[2021-04-10 04:31] LABS: Absolute Lymphocytes (CBC) 0.9 K/uL (0.7-4.9); Basophils % 0.2 % (0-1.3); Hematocrit 23.8 % (36.0-45.0); Lymphocytes % 11.4 % (15.3-44.8); RBC Red Blood Cell Count 2.61 M/uL (3.86-4.86)
[2021-04-10 04:43] LABS: Albumin 2.5 g/dL (3.4-5.0); Bilirubin Total 1.3 mg/dL (0.2-1.0); Magnesium 1.5 mg/dL (1.8-2.4); Potassium 4.1 mmol/L (3.5-5.1); Protein, Total 5.4 g/dL (6.4-8.2)
[2021-04-10] MEDS: D5 0.45 NS 1,000 ML IV SCH (05:38)
[2021-04-10] MEDS: PANTOPRAZOLE 40MG TABLET PO SCH (05:56)
[2021-04-10] MEDS ORDERED: Magnesium Sulfate 2gm IVPB 2 G/50 ML BAG IV ONE (06:00)
[2021-04-10] MEDS: carvediloL 25 MG TAB PO SCH ×2 (08:02→20:25)
[2021-04-10] MEDS: MAGNESIUM OXIDE 400 MG TAB PO SCH (08:02)
[2021-04-10] MEDS: lisinopriL 10 MG TAB PO SCH (08:02)
[2021-04-10] MEDS: allopurinoL 300 MG TAB PO SCH (08:04)
[2021-04-10] MEDS ORDERED: NA CHLORIDE 0.9% 1,000 ML ONE (14:54)
[2021-04-10] MEDS ORDERED: GLUCAGON 1 MG/VIAL ONE (15:03)
[2021-04-10] MEDS ORDERED: GENTAMICIN SULF 80 MG/2ML INJ ONE (15:03)
[2021-04-10] MEDS ORDERED: propofoL 200 MG/20 ML VIAL IV ONE ×3 (15:04→15:59)
[2021-04-10] MEDS ORDERED: EPHEDRINE SULF 50 MG/ML VIAL ONE (15:04)
[2021-04-10] MEDS ORDERED: LIDOCAINE 1% MPF 5 ML VIAL ONE (15:05)
[2021-04-10] MEDS ORDERED: Phenylephrine HCl 10 MG/ML 1 ML VIAL ONE (15:23)
--- NOTE | 2021-04-10 15:52 | ENDO RPT ---
[address], [id number] ERCP PROCEDURE REPORT EXAM DATE: 04/10/2021 PATIENT NAME: Bel Vallejo MR #: [id number] BIRTHDATE: 1950 ATTENDING: Terrance Hameed Dr STATUS: inpatient - 7 ADMINISTRATIVE ASSISTANT COORDINATOR: Kelle Swain RN and Rosana Sanabria CST INDICATIONS: The patient is a 70 yr old Female here for an ERCP due to suspected stone and abdominal pain PROCEDURE PERFORMED: ERCP, Diagnostic MEDICATIONS: Per Anesthesia. CONSENT: The patient understands the risks and benefits of the procedure and understands that these risks include, but are not limited to: sedation, allergic reaction, infection, perforation and/or bleeding. Alternative means of evaluation and treatment include, among others: physical exam, x-rays, and/or surgical intervention. The patient elects to proceed with this endoscopic procedure. DESCRIPTION OF PROCEDURE: During intra-op preparation period all mechanical medical equipment was checked for proper function. Hand hygiene and appropriate measures for infection prevention was taken. Procedure, possible complications, and alternatives including but not limited to the possibility of bleeding, perforation, tear, infection, sepsis, need for surgery, need for blood transfusion, and anesthesia related complications were explained to the patient. In addition, 5-30% incidence of acute pancreatitis as a result of ERCP were explained. After the risks, benefits and alternatives of the procedure were thoroughly explained, Informed was verified, confirmed and timeout was successfully executed by the treatment team. With the patient in left semi-prone position, medications were administered intravenously.The [id number] ([id number]) was passed from the mouth into the esophagus and further advanced from the esophagus into the stomach. From stomach scope was directed to the second portion of the duodenum. Major papilla was aligned with the duodenoscope. The scope position was confirmed fluoroscopically. Rest of the findings/therapeutics are given below. The scope was then completely withdrawn from the patient and the procedure completed. The pulse, BP, and O2 saturation were monitored and documented by the physician and the nursing staff throughout the entire procedure. The patient was cared for as planned according to standard protocol. The patient was then discharged to recovery in stable condition and with appropriate post procedure care. The pancreatic duct was filled to the tail and appeared to be normal. Care was taken not to overfill the ductal system. Unable to cannulate common bile duct. ADVERSE EVENT: There were no complications. IMPRESSIONS: 1. The pancreatic duct was filled to the tail and appeared to be normal. Care was taken not to overfill the ductal system. 2. Unable to cannulate common bile duct RECOMMENDATIONS: liver enzymes REPEAT EXAM: Terrance Hameed Dr eSigned: Terrance Hameed Dr 04/10/2021 3:51 PM cc: CPT CODES: ICD9 CODES:
--- NOTE | 2021-04-10 16:29 | RAD REPORT ---
EXAM DESCRIPTION: Fluoroscopy for ERCP CLINICAL HISTORY: ERCP Abdominal pain FINDINGS: Fluoroscopic images submitted from ERCP procedure. Details and diagnostic findings of the procedure are not available. Total fluoroscopy time: 239 second
--- NOTE | 2021-04-10 17:52 | P.PN ---
Subjective Date of Service: 04/10/21 Primary Care Provider: Dr. Irma Bell Chief Complaint: cholecystitis Subjective: No new changes (doing well, abd pain improved, no nausea/vomiting, hasn't eaten solid food in a few days though scheduled for EGD/ERCP today) Review of Systems 10-point ROS is otherwise unremarkable Physical Examination - Vital Signs Temperature: 97.9 F Blood Pressure: 152/80 Pulse: 89 Respirations: 16 Pulse Ox (%): 98 Assessment & Plan Physician Review Additional Text: Physical Exam General: Alert, In no apparent distress, Oriented x3 HEENT: Mucous membr. moist/pink Respiratory: Clear to auscultation bilaterally, Normal air movement Cardiovascular: No edema, Regular rate/rhythm, Normal S1 S2 Gastrointestinal: Soft and benign, Non-distended, No tenderness Musculoskeletal: No swelling Integumentary: No rashes, No breakdown Neurological: Normal strength at 5/5 x4 extr Problem list Acute cholecystitis now s/p lap stephanie Choledocholithiasis Anemia, acute blood loss., abdm wall hematoma Chronic atrial fibrillation on Eliquis s/p lap stephanie, intra-op cholangiogram reported rounded mass in the CBD seen at times repeat imaging revealed stones in CBD pt scheduled for ERCP today- rescheduled from yesterday due to leak in room s/p 1uPRBC, abd wall hematomas. for EGD today to r/o GI bleed General surgery following as well continue zosyn, IVF continue to hold eliquis Dispo: anticipate dc home in ~24hrs, pending ERCP, stable hgb, tolerating diet Time Spent Managing Pts Care (In Minutes): 35
--- NOTE | 2021-04-10 18:57 | CON ---
Date of Consultation: 04/08/2021 Reason For Consultation: Anemia, hemoglobin 6.4 with melena 10 days ago with choledocholithiasis and right upper quadrant and coagulopathy. History Of Present Illness: The patient is a 70-year-old white female with history of hypertension, diabetes, hyperlipidemia, atrial fibrillation, gout, osteoarthritis, hysterectomy, , CABG, a nd pacemaker. The patient presented to hospital with acute cholecystitis and gallstones. Ultrasound showed mildly dilated common bile duct, but no stones in bile duct and no stones were reported on e scan, it does not look like. Liver numbers were normal. AST and ALT all below 30, alkaline phosph atase normal. Total bilirubin normal. The patient was taken to the operating room. IOC was perform ed. There was radiolucent area on intraoperative cholangiogram, could have been air bubbl e or stone. cholecystectomy, hemoglobin began to drop. Urgent CT scan was done, which cadence wed a 9 cm hematoma at the surgical site and a small 4 cm hematoma, likely cause of the drop in hemog lobin. She has some midepigastric pain secondary to the hematoma as well postop. The patient did we ll, hemoglobin stabilized. Coagulopathy was corrected. The patient still has stones. The CT scan a lso revealed multiple stones in common bile duct by report. Ultrasound revealed IOC only saw 1 radio lucent area as stated above. Past Medical History: Significant for diabetes, hypertension, hyperlipidemia, atrial fibrillation, g out, osteoarthritis, essential tremors, hysterectomy, , CABG, coronary artery disease, pacem shannon placement. Social History: She is a , 3 children. No tobacco. No alcohol. Family History: Father of liver disease. Mother of Alzheimer disease. Allergies: NKDA. Medications: See list. Pathology from gallbladder revealed chronic cholecystitis and cholelithiasis. All stones were seen o n the pathology. Ultrasound of abdomen showed small echogenic structures within the gallbladder, pro bably stones and thickened gallbladder wall possibly indicating cholecystitis and mild dilatation of bile duct on ultrasound. Review of Systems: The patient has right upper quadrant and epigastric pain and mild nausea. No fevers, chills, night s weats. Anemia, hemoglobin of 6.4, possible melena 10 days ago, also last time medical issue patient reports she had coagulopathy and obesity and had COVID pneumonia in December of this year. Physical Examination: Vital Signs: She is 5 feet, 174 pounds, BMI of 34.1 kg/m2. General: Obese, elderly female, good mood, jovial lady. HEENT: Normocephalic, atraumatic. Anicteric. Pupils equal, round, and reactive to light. Extraocu lar movements intact. Oropharynx is clear. Neck: Supple. No masses. Respirations: Clear to auscultation bilaterally. Cardiac: Regular rate and rhythm. She could have some irregularity. Abdomen: Positive bowel sounds. Soft. Some mild tenderness in the midepigastric area. Obese. No peritoneal or Walker signs. Extremities: No clubbing, cyanosis, or edema. 2+ pulses. Neuro: Alert and oriented x3. Grossly nonfocal. 5/5 motor strength. Sensation intact to light jack ch. Laboratory Data: The patient has a white count of 8.0, hemoglobin 6.4 down from 9.4 on the 5th, alberto tocrit 18.8, MCV of 96, platelet count of 109 down from 133 on the 5th, polys of 77%, lymphocytes 13% , monocytes 6%, eosinophils 4%. PT of 13.2, INR of 1.15, PTT of 27.1. The patient has a sodium of 1 43, potassium 4.3, chloride 112, bicarb 25, BUN 25, creatinine 1.5, glucose 99, calcium 8.3, magnesiu m 1.8, calcium 8.3, total bilirubin 1.0, direct bilirubin 0.3, AST of 33, ALT of 35, alkaline phospha tase of 113, total protein 5.4, albumin 2.7 . Negative UA. COVID-19 testing was negative on April 05. Ultrasound of abdomen revealed pericholecystic fluid consistent with cholecystitis, cho lelithiasis with stones inside the gallbladder, mild CBD thickening, but no stones seen in the CBD. Intraoperative cholangiogram revealed a round radiolucent lesion, could be stone or air bubble. The patient unable to do MRCP due to pacemaker. Subsequent CT of the abdomen and pelvis revealed a 9 cm hematoma and 4 cm hematoma in the abdominal wall at surgical site, likely contributing to some abdomi nal pain she is having now and stones in the common bile duct. Impression: 1.Anemia, hemoglobin 6.4. 2.Melena, last time 10 days ago. 3.Probable choledocholithiasis with intraoperative cholangiogram revealing a stone versus bubble in the common bile duct, pacemaker, unable to MRCP. CT shows stones in common bile duct now, but not se en on ultrasound or clearly on biopsy. 4.Right upper quadrant pain, probably due to hematomas in right upper quadrant area, 9 cm hematoma b eing the large. 5.Coagulopathy, has already been corrected. 6.History of obesity, COVID-19 pneumonia in December 2020. COVID negative now. 7.Diabetes, hypertension, hyperlipidemia as stated above and others as stated above. Recommendations: 1.Agree with packed RBCs. 2.Serial H and H, transfuse p.r.n. 3.CT abdomen stat which has been done. CT revealed hematomas and stones in the common bile duct. 4.Check PT and PTT stat, which was done and shows that the coagulopathy has been corrected. 5.EGD and ERCP. 6.Consider colonoscopy in this patient with melena, hemoglobin of 6.4. ANTONIETTA/DEANNE Voice ID: [id number] Report ID: [id number]
[2021-04-10] MEDS ORDERED: [UNRECOGNIZED DRUG - OTHER] IV ONE (20:01)
[2021-04-10] MEDS ORDERED: Ringers Lactate 1,000 ML IV ONE (21:00)
[2021-04-11] MEDS: PIPER/TAZO/NS 3.375gm 3.375 GM/100 ML BAG IVPB SCH ×3 (00:52→16:09)
[2021-04-11] MEDS: D5 0.45 NS 1,000 ML IV SCH (01:00)
[2021-04-11 04:38] LABS: HBsAG Nonreactive (Nonreactive)
[2021-04-11] MEDS: PANTOPRAZOLE 40MG TABLET PO SCH (05:35)
[2021-04-11 06:00] LABS: Absolute Lymphocytes (CBC) 0.8 K/uL (0.7-4.9); Basophils % 0.4 % (0-1.3); Hematocrit 24.3 % (36.0-45.0); Lymphocytes % 10.3 % (15.3-44.8); MPV 8.6 fL (7.6-11.3); RBC Red Blood Cell Count 2.64 M/uL (3.86-4.86)
[2021-04-11 06:13] LABS: Albumin 2.5 g/dL (3.4-5.0); Bilirubin Total 1.9 mg/dL (0.2-1.0); Potassium 3.9 mmol/L (3.5-5.1); Protein, Total 5.4 g/dL (6.4-8.2)
[2021-04-11] MEDS: MAGNESIUM OXIDE 400 MG TAB PO SCH (08:59)
[2021-04-11] MEDS: carvediloL 25 MG TAB PO SCH ×2 (08:59→21:05)
[2021-04-11] MEDS: lisinopriL 10 MG TAB PO SCH (08:59)
[2021-04-11] MEDS: allopurinoL 300 MG TAB PO SCH (09:00)
[2021-04-11] MEDS ORDERED: KCL 20 MEQ/100 mL IVPB 20 MEQ/100 ML BAG IV SCH (09:00)
--- NOTE | 2021-04-11 09:01 | P.PN ---
Subjective Date of Service: 04/11/21 Primary Care Provider: Dr. Irma Bell Chief Complaint: cholecystitis, cholelithiasis s/p lap stephanie & asymptomatic probable choledo Subjective: No new changes (Feels well. No abdominal pain, F/C/NS, N/V, jaundice. Liver chemistries, lipase and WBC normal.) Physical Examination - Vital Signs Temperature: 97.6 F Blood Pressure: 160/78 Pulse: 96 Respirations: 16 Pulse Ox (%): 98 Assessment And Plan - Current Problems (Diagnosis) (1) Abdominal hematoma Current Visit: Yes Status: Acute (2) Abnormal CT of the abdomen Current Visit: Yes Status: Acute (3) Acute cholecystitis Current Visit: Yes Status: Acute (4) Anemia Current Visit: Yes Status: Acute (5) Choledocholithiasis Current Visit: Yes Status: Acute (6) Cholelithiasis Current Visit: Yes Status: Acute (7) Chronic atrial fibrillation Current Visit: Yes Status: Acute (8) Congestive heart failure (CHF) Current Visit: Yes Status: Acute - Plan REC: 1) Physician Review Additional Text: Physical Exam General: Alert, In no apparent distress, Oriented x3 HEENT: Mucous membr. moist/pink Respiratory: Clear to auscultation bilaterally, Normal air movement Cardiovascular: No edema, Regular rate/rhythm, Normal S1 S2 Gastrointestinal: Soft and benign, Non-distended, No tenderness Musculoskeletal: No swelling Integumentary: No rashes, No breakdown Neurological: Normal strength at 5/5 x4 extr Problem list Acute cholecystitis now s/p lap stephanie Choledocholithiasis Anemia, acute blood loss., abdm wall hematoma Chronic atrial fibrillation on Eliquis s/p lap stephanie, intra-op cholangiogram reported rounded mass in the CBD seen at times repeat imaging revealed stones in CBD pt scheduled for ERCP today- rescheduled from yesterday due to leak in room s/p 1uPRBC, abd wall hematomas. for EGD today to r/o GI bleed General surgery following as well continue zosyn, IVF continue to hold eliquis Dispo: anticipate dc home in ~24hrs, pending ERCP, stable hgb, tolerating diet
--- NOTE | 2021-04-11 10:15 | P.PN ---
Subjective Date of Service: 04/11/21 Primary Care Provider: Dr. Irma Bell Chief Complaint: cholecystitis, cholelithiasis s/p lap stephanie & asymptomatic probable choledo Physical Examination - Vital Signs Temperature: 97.6 F Blood Pressure: 160/78 Pulse: 96 Respirations: 16 Pulse Ox (%): 98 Assessment And Plan - Current Problems (Diagnosis) (1) Abdominal hematoma Current Visit: Yes Status: Acute (2) Abnormal CT of the abdomen Current Visit: Yes Status: Acute (3) Acute cholecystitis Current Visit: Yes Status: Acute (4) Anemia Current Visit: Yes Status: Acute (5) Choledocholithiasis Current Visit: Yes Status: Acute (6) Cholelithiasis Current Visit: Yes Status: Acute (7) Chronic atrial fibrillation Current Visit: Yes Status: Acute (8) Congestive heart failure (CHF) Current Visit: Yes Status: Acute - Plan REC: 1) will transfer due to difficult biliary anatomy noted on ERCP and lap stephanie surgery. [facility] 2) she has CHF and A fib, so though probable choledocholithiasis by IOC possible and CT (not U/S abd) better to resolve now, though stones asymptomatic with normal liver numbers / lipase and tolerating po Physician Review Additional Text: Physical Exam General: Alert, In no apparent distress, Oriented x3 HEENT: Mucous membr. moist/pink Respiratory: Clear to auscultation bilaterally, Normal air movement Cardiovascular: No edema, Regular rate/rhythm, Normal S1 S2 Gastrointestinal: Soft and benign, Non-distended, No tenderness Musculoskeletal: No swelling Integumentary: No rashes, No breakdown Neurological: Normal strength at 5/5 x4 extr Problem list Acute cholecystitis now s/p lap stephanie Choledocholithiasis Anemia, acute blood loss., abdm wall hematoma Chronic atrial fibrillation on Eliquis s/p lap stephanie, intra-op cholangiogram reported rounded mass in the CBD seen at times repeat imaging revealed stones in CBD pt scheduled for ERCP today- rescheduled from yesterday due to leak in room s/p 1uPRBC, abd wall hematomas. for EGD today to r/o GI bleed General surgery following as well continue zosyn, IVF continue to hold eliquis Dispo: anticipate dc home in ~24hrs, pending ERCP, stable hgb, tolerating diet
--- NOTE | 2021-04-11 15:09 | P.PN ---
Subjective Date of Service: 04/11/21 Primary Care Provider: Dr. Irma Bell Chief Complaint: cholecystitis, cholelithiasis s/p lap stephanie & asymptomatic probable choledo Subjective: Improving (feeling ok this morning, no abd pain, tolerated a few bites of food yesterday, without new complaints hgb stable, EGD without bleed, ERCP with difficult to access CBD) Review of Systems 10-point ROS is otherwise unremarkable Physical Examination - Vital Signs Temperature: 98.8 F Blood Pressure: 152/82 Pulse: 92 Respirations: 16 Pulse Ox (%): 96 Assessment & Plan Physician Review Additional Text: Physical Exam General: Alert, In no apparent distress, Oriented x3 HEENT: Mucous membr. moist/pink Respiratory: Clear to auscultation bilaterally, Normal air movement Cardiovascular: No edema, Regular rate/rhythm, Normal S1 S2 Gastrointestinal: Soft and benign, Non-distended, No tenderness Musculoskeletal: No joint swelling Integumentary: No rashes, No breakdown Neurological: Normal strength at 5/5 x4 extr Problem list Acute cholecystitis now s/p lap stephanie Choledocholithiasis Anemia, acute blood loss., due to abdm wall hematoma Chronic atrial fibrillation on Eliquis s/p lap stephanie, intra-op cholangiogram reported rounded mass, possible air buble vs stone in the CBD seen at times repeat imaging revealed stones in CBD ERCP done yesterday, unfortunately unable to access and evaluate CBD discussed with GI and given comorbidities and stones seen, recommended transfer to [place] for repeat ERCP s/p 1uPRBC for anemia due to abd wall hematoma General surgery following as well has been maintained on Zosyn continue to hold eliquis Dispo: transfer to [facility], pending bed availability Time Spent Managing Pts Care (In Minutes): 35
--- NOTE | 2021-04-11 17:52 | P.PN ---
Date of Service: 04/11/21 S: Patient has no specific complaints, it is just anxious to know with the treatment plan is. O: Vital signs are stable A the patient has choledocholithiasis, found on the IOC. ERCP unsuccessful. Abdominal wall trocar hematoma is stable. P patient to be transferred to [place].
--- NOTE | 2021-04-11 20:11 | P.DS ---
Admission Date: 04/05/21 Discharge Date: 04/13/21 Primary Care Provider: Dr. Irma Bell ([place]) Disposition: TRANSFER TO [facility] Discharge Condition: FAIR Reason for Admission: cholecystitis, cholelithiasis Consultations: General Surgery - Dr. Prudencio Martinez GI - Dr. Kristin Hameed Cardiology - Dr. Adair / Dr. Beyer Procedures: CXR (04/05): The lungs appear clear of acute infiltrate. The heart is mildly enlarged. Pacemaker leads are in place. Postsurgical changes involve the chest IMPRESSION: No acute abnormalities displayed U/S Abd (04/05): FINDINGS: Several small echogenic structures within the gallbladder. Posterior shadowing was not clearly visualized. Gallbladder wall is thickened measuring 6 millimeters. The common bile measures 8 millimeters. Small amount of pericholecystic fluid is present. IMPRESSION: Thickened gallbladder wall may indicate cholecystitis Small echogenic structures within the gallbladder probably stones which did not shadow secondary to a combination of their small size and technical factors. Mild dilatation of common bile duct Lap Cholecystectomy (04/06): acute cholecystitis with cholelithiasis Intra-op Cholangiogram (04/06): Cystic duct injection was performed by operating surgeon. Common bile duct is mildly prominent in size. Rounded filling defect in the common bile duct may represent a stone or less likely air bubble. TTE (04/08): MEASUREMENTS (cm) DIASTOLIC (NORMALS) SYSTOLIC (NORMALS) IVSd 0.9 (0.6-1.2) LA Diam 4.4 (1.9-4.0) LVEF 29% LVIDd 4.4 (3.5-5.7) LVIDs 3.8 (2.0-3.5) %FS 13% LVPWd 1.0 (0.6-1.2) Ao Diam 3.9 (2.0-3.7) 2 DIMENSIONAL ASSESSMENT: RIGHT ATRIUM: NORMAL LEFT ATRIUM: NORMAL RIGHT VENTRICLE: PACEMAKER WIRE LEFT VENTRICLE: DEPRESSED TRICUSPID VALVE: MODERATE TRICUSPID REGURGITATION MITRAL VALVE: MITRAL ANNULAR CALCIFICATION, MODERATE MITRAL REGURGITATION PULMONIC VALVE: NORMAL AORTIC VALVE: CALCIFIED PERICARDIAL EFFUSION: NONE AORTIC ROOT: DILATE AORTA LEFT VENTRICULAR WALL MOTION: SEVERE GLOBAL HYPOKINESIS. DOPPLER/COLOR FLOW: SEE BELOW. COMMENTS: SEVERELY DEPRESSED LEFT VENTRICULAR EJECTION FRACTION 25-30% WITH GLOBAL HYPOKINESIS. MODERATE MITRAL REGURGITATION, MODERATE TRICUSPID REGURGITATION. MODERATE AORTIC STENOSIS. DILATED THORACIC AORTA AT 4.3 CENTIMETERS. PULMONARY HYPERTENSION (SEVERE) WITH RIGHT VENTRICULAR SYSTOLIC PRESSURE GREATER THAN 60mmHg. CT Abd/pelvis (04/08): FINDINGS: Linear atelectasis is present in both posterior lung bases. The liver, spleen, pancreas, adrenal glands and kidneys are within normal limits for a limited non-contrast examination.Benign cysts are present in both kidneys without hydronephrosis. Cholecystectomy. Several radiodense rounded stones are seen in the common bile duct, the largest measuring 6-7 mm. Intra-abdominal right upper quadrant 9 x 4 cm echogenic structure is present along the anterior abdominal wall compatible with a hematoma. Additional smaller hematoma along the anterior wall is present slightly more inferiorly located measuring 4.0 x 1.6 cm. No bowel obstruction present. No abscess identified. Mild aortoiliac atherosclerosis. No fracture or subluxation evident.Moderate right flank soft tissue edema. IMPRESSION: Several stones are present in the common bile duct compatible with choledocholithiasis. Right upper quadrant anterior intra-abdominal hematomas along the abdominal wall noted as detailed. A limited non-contrast examination was performed as detailed. EGD/ERCP (04/10): Pancreatic duct was filled to the tail and appeared to be normal. Care was taken not to overfill the ductal system. Unable to cannulate common bile duct. Problem list Acute cholecystitis now s/p lap stephanie Choledocholithiasis Anemia, acute blood loss, due to abdm wall hematoma Chronic atrial fibrillation on Eliquis CAD s/p CABG Chronic systolic CHF (EF 25-30%) s/p pacemaker DM2, non-insulin dependent Brief History of Present Illness: Ms. Vallejo is a 70 y/o F w/ HTN, HLD, T2DM, hx of CABG and pacemaker, on eliquis, who presents today w/ RUQ pain radiating to lower back. She states the pain started a few hours after eating lunch and felt like indigestion. She states the pain was continuous and 10/10. Reports this has never occurred before. C/o nausea, vomiting, chills. Denies any fever, cough, changes in bowel movements. BUN 22, Alk phos 169, BNP 3810. Abdominal u/s shows: Thickened gallbladder wall may indicate cholecystitis. Small echogenic structures within the gallbladder probably stones which did not shadow secondary to a combination of their small size and technical factors. Mild dilatation of common bile duct Will admit and plan for surgery tomorrow. Pt last took eliquis this afternoon. Pain well controlled in ED. Hospital Course: Empirically treated with IV antibiotics. Eliquis held. Cardiology was consulted for cardiac clearance /optimization. An echocardiogram was performed and did not show any wall motion abnormalities. General Surgery was consulted, took patient for lap cholecystectomy. Noted possible air pocket vs stone in the common bile duct. Repeat imaging revealed multiple stones in the CBD. Patient was unable to obtain MRI due to pacemaker. GI was consulted and took patient back for ERCP on 04/11. Unfortunately ERCP was unsuccessful in accessing the CBD. Patient was transferred to [place] for repeat ERCP. She is high risk to develop cholangitis and further complications given her comorbidities. On day of discharge she was noted to be feeling better, without abdominal pain and tolerating a diabetic diet. Hospitalization was complicated by acute blood loss anemia due to intrabdominal hematoma formation from trochanter. Patient's hemoglobin dropped to 6.4 , and received 1u PRBC. Her hemoglobin remained stable from 8 - 8.3. Her Eliquis has been held since admission. Vital Signs/Physical Exam: Physical Exam General: Alert, In no apparent distress, Oriented x3 HEENT: Mucous membr. moist/pink Respiratory: Clear to auscultation bilaterally, Normal air movement Cardiovascular: No edema, Regular rate/rhythm, Normal S1 S2 Gastrointestinal: Soft and benign, Non-distended, No tenderness Musculoskeletal: No joint swelling Integumentary: No rashes, no skin lesions Temp Pulse Resp BP Pulse Ox 98.6 F 88 16 132/76 97 04/11/21 16:00 04/11/21 16:00 04/11/21 16:00 04/11/21 16:00 04/11/21 16:00 Laboratory Data at Discharge: WBC 7.90 K/uL (4.3-10.9) 04/11/21 05:32 Hgb 8.1 g/dL (12.0-15.0) L 04/11/21 05:32 Hct 24.3 % (36.0-45.0) L 04/11/21 05:32 Plt Count 138 K/uL (152-406) L 04/11/21 05:32 PT 13.2 SECONDS (9.5-12.5) H 04/08/21 13:03 INR 1.15 04/08/21 13:03 APTT 27.1 SECONDS (24.3-36.9) 04/08/21 13:03 Sodium 142 mmol/L (136-145) 04/11/21 05:32 Potassium 3.9 mmol/L (3.5-5.1) 04/11/21 05:32 BUN 9 mg/dL (7-18) 04/11/21 05:32 Creatinine 0.79 mg/dL (0.55-1.3) 04/11/21 05:32 Glucose 79 mg/dL (74-106) 04/11/21 05:32 Phosphorus 3.0 mg/dL (2.5-4.9) 04/06/21 05:10 Magnesium 2.0 mg/dL (1.8-2.4) D 04/10/21 12:27 Total Bilirubin 1.9 mg/dL (0.2-1.0) H 04/11/21 05:32 AST 17 U/L (15-37) 04/11/21 05:32 ALT 17 U/L (12-78) 04/11/21 05:32 Alkaline Phosphatase 91 U/L (45-117) 04/11/21 05:32 Troponin I < 0.02 ng/mL (0.0-0.045) 04/05/21 23:21 Triglycerides 110 mg/dL (<150) 04/06/21 05:10 Cholesterol 122 mg/dL (<200) 04/06/21 05:10 HDL Cholesterol 42 mg/dL (40-60) 04/06/21 05:10 Cholesterol/HDL Ratio 2.90 04/06/21 05:10 Lipase 68 U/L (73-393) L 04/11/21 05:32 Home Medications: Allopurinol 300 mg PO DAILY 04/06/21 Apixaban [Eliquis] 1 tab PO BID 04/06/21 Atorvastatin Calcium [Lipitor] 80 mg PO BEDTIME 04/06/21 Carvedilol [Coreg] 25 mg PO BID 04/06/21 Colchicine 0.6 mg PO Q12HP PRN 04/06/21 Ezetimibe [Zetia] 10 mg PO DAILY 04/06/21 Furosemide 40 mg PO BIDL 04/06/21 Lisinopril [Zestril] 10 mg PO DAILY 04/06/21 Magnesium Oxide [Magnesium] 400 mg PO DAILY 04/06/21 Multivit-Min/Iron/Folic/Lutein [Centrum Silver Women Tablet] 1 each PO DAILY 04/06/21 Omeprazole 20 mg PO [id number] 04/06/21 Sitagliptin Phos/Metformin HCl [Janumet 50-1,000 mg Tablet] 1 each PO DAILY 04/06/21 Followup: Chante Miramontes [Primary Care Provider] - Time spent managing pt's care (in minutes): 45
[2021-04-11 22:09] VITALS: O2SAT 98
[2021-04-12] MEDS: PIPER/TAZO/NS 3.375gm 3.375 GM/100 ML BAG IVPB SCH ×3 (00:30→16:08)
[2021-04-12 05:30] LABS: Absolute Lymphocytes (CBC) 0.8 K/uL (0.7-4.9); Basophils % 0.9 % (0-1.3); Lymphocytes % 9.7 % (15.3-44.8); MPV 8.6 fL (7.6-11.3); RBC Red Blood Cell Count 2.51 M/uL (3.86-4.86)
[2021-04-12 05:46] LABS: Albumin 2.5 g/dL (3.4-5.0); Bilirubin Total 2.4 mg/dL (0.2-1.0); Potassium 3.5 mmol/L (3.5-5.1); Protein, Total 5.6 g/dL (6.4-8.2)
[2021-04-12] MEDS: PANTOPRAZOLE 40MG TABLET PO SCH (06:08)
[2021-04-12] MEDS: lisinopriL 10 MG TAB PO SCH (08:30)
[2021-04-12] MEDS: carvediloL 25 MG TAB PO SCH ×2 (08:30→20:40)
[2021-04-12] MEDS: MAGNESIUM OXIDE 400 MG TAB PO SCH (08:31)
[2021-04-12] MEDS: allopurinoL 300 MG TAB PO SCH (08:31)
--- NOTE | 2021-04-12 17:15 | P.PN ---
Subjective Date of Service: 04/12/21 Primary Care Provider: Dr. Irma Bell ([place]) Chief Complaint: cholecystitis, cholelithiasis Subjective: No new changes (tolerated diet yesterday, awaiting available bed) Review of Systems 10-point ROS is otherwise unremarkable Physical Examination - Vital Signs Temperature: 97.9 F Blood Pressure: 125/64 Pulse: 89 Respirations: 18 Pulse Ox (%): 98 Assessment & Plan Physician Review Additional Text: Physical Exam General: Alert, In no apparent distress, Oriented x3 HEENT: Mucous membr. moist/pink Respiratory: Clear to auscultation bilaterally, Normal air movement Cardiovascular: No edema, Regular rate/rhythm, Normal S1 S2 Gastrointestinal: Soft and benign, Non-distended, No tenderness Neurological: Normal strength at 5/5 x4 extr Problem list Acute cholecystitis now s/p lap stephanie Choledocholithiasis Anemia, acute blood loss., due to abdm wall hematoma Chronic atrial fibrillation on Eliquis s/p lap stephanie, intra-op cholangiogram reported rounded mass, possible air buble vs stone in the CBD seen at times repeat imaging revealed stones in CBD ERCP 04/10, unfortunately unable to access and evaluate CBD discussed with GI and given comorbidities and stones seen, recommended transfer to [place] for repeat ERCP s/p 1uPRBC for anemia due to abd wall hematoma General surgery following has been maintained on Zosyn continue to hold eliquis [facility]po[facility] Time Spent Managing Pts Care (In Minutes): 35
[2021-04-13] MEDS: PIPER/TAZO/NS 3.375gm 3.375 GM/100 ML BAG IVPB SCH ×3 (00:16→16:33)
[2021-04-13] MEDS: PANTOPRAZOLE 40MG TABLET PO SCH (05:02)
[2021-04-13 05:43] LABS: Absolute Lymphocytes (CBC) 0.9 K/uL (0.7-4.9); Basophils % 0.6 % (0-1.3); Hematocrit 25.3 % (36.0-45.0); Lymphocytes % 11.9 % (15.3-44.8); MPV 8.6 fL (7.6-11.3); RBC Red Blood Cell Count 2.76 M/uL (3.86-4.86)
[2021-04-13 06:10] LABS: Albumin 2.7 g/dL (3.4-5.0); Potassium 3.4 mmol/L (3.5-5.1); Protein, Total 5.9 g/dL (6.4-8.2)
--- NOTE | 2021-04-13 07:43 | P.PN ---
Subjective Date of Service: 04/13/21 Primary Care Provider: Dr. Irma Bell ([place]) Chief Complaint: cholecystitis, cholelithiasis Subjective: No new changes (doing well, awaiting bed availability, denies abd pain beyond slight soreness from surgical incisions +BM, voiding, ambulating) Review of Systems 10-point ROS is otherwise unremarkable Physical Examination - Vital Signs Temperature: 97 F Blood Pressure: 140/75 Pulse: 86 Respirations: 18 Pulse Ox (%): 98 Assessment & Plan Physician Review Additional Text: Physical Exam General: Alert, In no apparent distress, Oriented x3 HEENT: Mucous membr. moist/pink Respiratory: Clear to auscultation bilaterally, Normal air movement Cardiovascular: No edema, Regular rate/rhythm, Normal S1 S2 Gastrointestinal: Soft and benign, Non-distended, No tenderness, surgical incisions without erythema/induration Neuro: normal affect, normal speech Problem list Acute cholecystitis now s/p lap stephanie Choledocholithiasis Anemia, acute blood loss, due to abdm wall hematoma Chronic atrial fibrillation on Eliquis CAD s/p CABG Chronic systolic CHF (EF 25-30%) s/p pacemaker DM2, non-insulin dependent s/p lap stephanie, intra-op cholangiogram reported rounded mass, possible air bubble vs stone in the CBD seen at times repeat imaging revealed stones in CBD ERCP 04/10, unfortunately unable to access and evaluate CBD discussed with GI and given comorbidities and stones seen, recommended transfer to [place] for repeat ERCP s/p 1uPRBC for anemia due to abd wall hematoma General surgery following has been maintained on Zosyn continue to hold eliquis Tbili slowly rising Dispo: Transfer to [facility], pending bed availability Time Spent Managing Pts Care (In Minutes): 35
[2021-04-13] MEDS ORDERED: POTASSIUM 25 MEQ EFFERV TAB PO ONE (09:00)
[2021-04-13] MEDS: MAGNESIUM OXIDE 400 MG TAB PO SCH (09:00)
[2021-04-13] MEDS: allopurinoL 300 MG TAB PO SCH (09:00)
[2021-04-13] MEDS: lisinopriL 10 MG TAB PO SCH (10:11)
[2021-04-13] MEDS: carvediloL 25 MG TAB PO SCH ×2 (10:11→20:56)
[2021-04-13 20:57] VITALS: BP 135/60
[2021-04-13 22:39] VITALS: TEMP 97
== END 2021-04-13 23:33 | disposition short-term general hospital (02) | DRG 418 ==
LOC: ER 18:24 → ERHOLD 21:35 → 2ND 22:23
PROVIDERS: ADMIT Internal Medicine; ATTEND Internal Medicine
PROC: BF00YZZ Plain Radiography of Bile Ducts using Other Contrast (ICD-10-PCS; 2021-04-06)
PROC: 0FT44ZZ Resection of Gallbladder, Percutaneous Endoscopic Approach (ICD-10-PCS; principal; 2021-04-06 14:00)
PROC: 30233N1 Transfusion of Nonautologous Red Blood Cells into Peripheral Vein, Percutaneous Approach (ICD-10-PCS; 2021-04-08)
PROC: 0FJD8ZZ Inspection of Pancreatic Duct, Via Natural or Artificial Opening Endoscopic (ICD-10-PCS; 2021-04-10)
PROC: 0FJB8ZZ Inspection of Hepatobiliary Duct, Via Natural or Artificial Opening Endoscopic (ICD-10-PCS; 2021-04-10)
DX: K80.42 Calculus of bile duct with acute cholecystitis without obstruction (principal); D62 Acute posthemorrhagic anemia; I48.20 Chronic atrial fibrillation, unspecified; I50.22 Chronic systolic (congestive) heart failure; K91.870 Postprocedural hematoma of a digestive system organ or structure following a digestive system procedure; Y84.5 Insertion of gastric or duodenal sound as the cause of abnormal reaction of the patient, or of later complication, without mention of misadventure at the time of the procedure; Y81.3 Surgical instruments, materials and general- and plastic-surgery devices (including sutures) associated with adverse incidents; Y92.234 Operating room of hospital as the place of occurrence of the external cause; I25.10 Atherosclerotic heart disease of native coronary artery without angina pectoris; I11.0 Hypertensive heart disease with heart failure; E11.9 Type 2 diabetes mellitus without complications; Z79.01 Long term (current) use of anticoagulants; Z95.1 Presence of aortocoronary bypass graft; Z95.0 Presence of cardiac pacemaker; Z20.822 Contact with and (suspected) exposure to COVID-19; Z86.16 Personal history of COVID-19
CPT/HCPCS: 36415; 36430; 71045; 74176; 74300; 76705; 80048; 80053; 80061; 80074; 80076; 81003; 82274; 82947; 83690; 83735; 83880; 84100; 84132; 84439; 84443; 84484; 85014; 85018; 85025; 85610; 85730; 86850; 86900; 86901; 88304; 93005; 93306; 94010; 94760; 99285; C1769; J1170; J1580; J1610; J2250; J2270; J2370; J2405; J2543; J2704; J2710; J3010; J3475; J3480; J7030; J7040; J7050; J7120; J7799; P9016; Q9967; U0003